=== PATIENT | male | born 1985 | race Caucasian/White ===

== ENCOUNTER → 2021-01-03 10:56 | Outpatient (CLI) | payer OTHER, SELFPAY ==
[2021-01-03 12:34] LABS: CRP, High Sensitivity Cardiac 2.49 mg/L; Cholesterol 198 mg/dL (200); Creatinine, Serum 0.96 mg/dL (0.70-1.30); EST Glomerular Filtration Rate 95 mL/min (>60); Est Glom Filt Rate - Afr Amer 115 mL/min (>60); High Density Lipoprotein 62 mg/dL; Magnesium 2.2 mg/dL (1.6-2.6); Triglycerides 67 mg/dL; Very Low Density Lipoprotein 13 mg/dL (5-40)
== END ==
PROVIDERS: Visit Provider Family Medicine
DX: Z00.00 Encounter for general adult medical examination without abnormal findings (principal); R00.2 Palpitations
CPT/HCPCS: 36415; 80061; 82565; 83735; 86141